=== PATIENT | male | born 1965 | race African-American/Black ===

== ENCOUNTER 2021-05-06 16:48 | Emergency (ER) | payer OTHER, SELFPAY ==
[~2021-05-06] VITALS: Ht 177.8 cm; Wt 96.1 kg
[2021-05-06 16:50] VITALS: BP 133/72
[2021-05-06] MEDS ORDERED: IBUPROFEN 800 MG TABLET ONE (17:23)
[2021-05-06] MEDS ORDERED: IBUPROFEN 800 MG TABLET PO ONE (17:30)
== END 2021-05-06 18:17 | disposition home or self-care (01) ==
LOC: ED 17:00
DX: S86.011A Strain of right Achilles tendon, initial encounter (principal); X58.XXXA Exposure to other specified factors, initial encounter; Y93.89 Activity, other specified; Y92.310 Basketball court as the place of occurrence of the external cause; Y99.8 Other external cause status
CPT/HCPCS: 29515; 99283